=== PATIENT | male | born 1975 ===

== ENCOUNTER → 2025-04-02 | Outpatient (CLI) | payer OTHER ==
[2025-04-02 19:39] LABS: Creatinine, Urine Random 174.0 mg/dL (27.00-270.00); Protein, Urine Random 9.8 mg/dL (0.0-11.9); Protein/Creat Ratio, Ur Random 0.1
== END ==
LOC: LAB SHORT 17:51 → LAB 17:51
DX: I10 Essential (primary) hypertension (principal)
CPT/HCPCS: 82570; 84156